=== PATIENT | male | born 1950 | race Caucasian/White ===

== ENCOUNTER 2017-04-10 08:49 | Day surgery (SDC) | payer OTHER ==
[~2017-04-10 08:49] MED LIST: AVAPRO150 MG PO; DILANTIN100 MG PO; GLUCOTROL10 MG PO; PHENOBARBITAL30 MG PO; VASOTEC10 MG NGT
== END 2017-04-10 15:05 | disposition home or self-care (01) ==
LOC: AMB-ENDOS 08:49
DX: K80.70 Calculus of gallbladder and bile duct without cholecystitis without obstruction (principal)

== ENCOUNTER 2017-04-13 14:22 | Outpatient (CLI) | payer OTHER | END 2017-04-13 14:26 | disposition home or self-care (01) | LOC: LAB 14:22 | DX: K80.20 Calculus of gallbladder without cholecystitis without obstruction (principal); Z51.81 Encounter for therapeutic drug level monitoring ==

== ENCOUNTER 2017-04-14 09:30 | Outpatient (CLI) | payer OTHER | END 2017-04-14 09:37 | disposition home or self-care (01) | LOC: TOM 09:30 | DX: K80.20 Calculus of gallbladder without cholecystitis without obstruction (principal); K83.1 Obstruction of bile duct; R93.3 Abnormal findings on diagnostic imaging of other parts of digestive tract | CPT/HCPCS: 74178; Q9965 ==

== ENCOUNTER 2017-09-14 19:10 | Emergency (ER) | payer OTHER ==
[~2017-09-14] VITALS: Ht 167.6 cm; Wt 77.1 kg
[2017-09-15] MEDS ORDERED: JANUMET XR 1001 EACH (19:17)
== END 2017-09-14 23:44 | disposition home or self-care (01) ==
LOC: ER 19:10
DX: K29.60 Other gastritis without bleeding (principal)

== ENCOUNTER 2017-09-15 18:59 | Inpatient (IN) | payer OTHER ==
[~2017-09-15] VITALS: Ht 167.6 cm; Wt 77.1 kg
[2017-09-15] MEDS ORDERED: JANUMET XR 1001 EACH (19:17)
== END 2017-09-17 12:54 | disposition designated cancer center or children's hospital (05) | DRG 390 ==
LOC: ER 18:59 → SEC-K 09-16 00:08 → SURG 09-16 07:53 → SEC-K 09-17 02:42
PROC: 4A033R1 Measurement of Arterial Saturation, Peripheral, Percutaneous Approach (ICD-10-PCS; principal; 2017-09-16)
DX: K56.690 Other partial intestinal obstruction (principal); Z90.49 Acquired absence of other specified parts of digestive tract